=== PATIENT | male | born 1965 | race Caucasian/White ===

== ENCOUNTER 2022-02-04 00:25 | Emergency (ER) | payer BC ==
[~2022-02-04] VITALS: Ht 177.8 cm; Wt 79.8 kg
[2022-02-04 00:51] VITALS: BP_SYST 153
--- NOTE | 2022-02-04 00:51 | NUR ---
Patient triaged and placed in waiting room. VSS and patient appears in no acute distress at this time. Accompanied by , awaiting available bed, and MD notified of need for MSE.
--- NOTE | 2022-02-04 01:11 | NUR ---
56 YR OLD AOX4 AMBULATORY MALE WITH COMPLAINT OF LOWER RIGHT SIDED ABDOMINAL PAIN 8/10 FOR 3 HOURS. PT REPORTS NAUSEA BUT NO VOMITING, PT STATED HE TOOK ADVIL WITH NO PAIN RELIEF. PT ACCOMPANIED BY . PENDING MD DAVID
[2022-02-04 01:39] LABS: BILIRUBIN,URINE NEGATIVE (NEGATIVE); BLOOD, URINE 2+ (NEGATIVE); CLARITY/URINE CLEAR (CLEAR); COLOR,URINE YELLOW (YELLOW); GLUCOSE,URINE NEGATIVE (NEGATIVE); KETONES,URINE NEGATIVE (NEGATIVE); LEUKOCYTE ESTERASE ,URINE NEGATIVE (NEGATIVE); NITRITE, URINE NEGATIVE (NEGATIVE); PH,URINE 5.5 (5.0-8.0); PROTEIN URINE NEGATIVE (NEGATIVE); UROBILINOGEN,URINE 0.2 (0.2-1.0)
[2022-02-04 01:42] LABS: BASOPHILS # (AUTO) 0.1 K/uL (0.0-0.2); BASOPHILS % (AUTO) 0.6 % (0.0-2.0); EOSINOPHILS # (AUTO) 0.1 K/uL (0.0-0.4); EOSINOPHILS % (AUTO) 1.4 % (0.0-4.0); HEMATOCRIT 42.4 % (36-54); HEMOGLOBIN 14.4 g/dL (14.0-18.0); LYMPHOCYTES % (AUTO) 10.4 % (20.5-51.5); MEAN CORPUSCULAR HEMOGLOBIN 28 pg (27-31); MEAN CORPUSCULAR HGB CONC 34 % (32-36); MEAN CORPUSCULAR VOLUME 84 fL (79.0-98.0); MONOCYTES # (AUTO) 0.4 K/uL (0.0-1.0); NEUTROPHILS # (AUTO) 8.1 K/uL (1.8-7.7); NEUTROPHILS % (AUTO) 83.6 % (40.0-70.0); PLATELET COUNT (AUTO) 166 K/uL (130-430); RED BLOOD CELL COUNT(AUTO) 5.07 MIL/uL (4.2-6.2); RED CELL DISTRIBUTION WIDTH 13.1 % (9.0-15.0); WHITE BLOOD COUNT (AUTO) 9.7 K/uL (4.8-10.8)
[2022-02-04 02:06] LABS: CALCIUM 8.9 mg/dL (8.4-11.0); CREATININE 1.33 mg/dL (0.55-1.30); POTASSIUM 4.2 mmol/L (3.5-5.1)
[2022-02-04 02:12] LABS: ALBUMIN 3.9 g/dL (3.4-4.8); TOTAL BILIRUBIN 0.9 mg/dL (0.0-1.0)
[2022-02-04] MEDS ORDERED: ONDANSETRON 4 MG ODT TAB PO ONE (02:15)
[2022-02-04] MEDS ORDERED: ONDANSETRON 4 MG ODT TAB ONE (02:18)
[2022-02-04 02:25] LABS: BACTERIA,URINE RARE /HPF (None Seen); RBC,URINE 0-3 /HPF (0-3); WBC,URINE 0-3 /HPF (0-3)
[2022-02-04] MEDS ORDERED: MORPHINE 4 MG INJ. 4 MG/ML VIAL IVP ONE (02:30)
[2022-02-04] MEDS ORDERED: NACL 0.9% 1,000 ML IV ONE (02:30)
[2022-02-04] MEDS ORDERED: KETOROLAC TROMETHAMINE 30 MG VIAL IVP ONE (02:30)
[2022-02-04] MEDS ORDERED: PERC10 PO (04:38)
[2022-02-04] MEDS ORDERED: IBUP-1969 PO (04:38)
[2022-02-04] MEDS ORDERED: TAMS-11 PO (04:38)
[2022-02-04] MEDS ORDERED: HYDROcodone/ACETAMIN 7.5-325 MG TAB PO ONE (04:45)
[2022-02-04] MEDS ORDERED: ONDANSETRON HCL 4 MG/2 ML VIAL IVP ONE (05:00)
[2022-02-04] MEDS ORDERED: ONDANSETRON HCL 4 MG/2 ML VIAL ONE (05:01)
--- NOTE | 2022-02-04 05:42 | NUR ---
Patient given written and verbal discharge instructions and verbalizes understanding. ER MD discussed with patient the results and treatment provided. Patient in stable condition. ID arm band removed. IV catheter removed intact and dressing applied, no active bleeding. Rx of ibuprofen, oxycodone, and percocet given. Patient educated on pain management and to follow up with PMD. Opportunity for questions provided and answered. Pt accompanied by
== END 2022-02-04 05:42 | disposition home or self-care (01) ==
LOC: SED 00:25
DX: N20.0 Calculus of kidney (principal); R10.32 Left lower quadrant pain
CPT/HCPCS: 36415; 74176; 76376; 80053; 81000; 83690; 85025; 96361; 96374; 96375; 99284; J1885; J2270; J2405; J7030; Q0162

== ENCOUNTER 2022-09-13 12:17 | Emergency (ER) | payer BC ==
[~2022-09-13] VITALS: Ht 177.8 cm; Wt 72.6 kg
[~2022-09-13 12:17] MED LIST: IBUP-1969 PO; PERC10 PO; TAMS-11 PO
[2022-09-13 12:26] VITALS: BP_SYST 148
[2022-09-13 13:30] LABS: BASOPHILS # (AUTO) 0.1 K/uL (0.0-0.2); BASOPHILS % (AUTO) 1.1 % (0.0-2.0); EOSINOPHILS # (AUTO) 0.1 K/uL (0.0-0.4); EOSINOPHILS % (AUTO) 2.2 % (0.0-4.0); HEMATOCRIT 45.2 % (36-54); HEMOGLOBIN 15.1 g/dL (14.0-18.0); MEAN CORPUSCULAR HEMOGLOBIN 29 pg (27-31); MEAN CORPUSCULAR HGB CONC 34 % (32-36); MEAN CORPUSCULAR VOLUME 85 fL (79.0-98.0); MONOCYTES # (AUTO) 0.5 K/uL (0.0-1.0); MONOCYTES % (AUTO) 7.8 % (1.7-9.3); NEUTROPHILS # (AUTO) 4.4 K/uL (1.8-7.7); NEUTROPHILS % (AUTO) 72.9 % (40.0-70.0); PLATELET COUNT (AUTO) 154 K/uL (130-430); RED BLOOD CELL COUNT(AUTO) 5.29 MIL/uL (4.2-6.2); RED CELL DISTRIBUTION WIDTH 13.5 % (9.0-15.0)
--- NOTE | 2022-09-13 13:31 | NUR ---
PT PRESENTS TO ED WITH REFERRAL FROM URGENT CARE WITH HIGH BP AND ABNORMAL EKG. PT WAS GIVEN AT 1040 CLONODINE 0.1MG. PT STATES HE HAS A HEART MUMUR, WAITING FOR ECHOCARDIOGRAM FROM SPECIALIST. PT CLAIMS HE IS ANXIOUS, EYE PRESSURE, AND IS NOT SLEEPING AT ALL. PT CLAIMS HE HAS SENSITIVITY TO LIGHT.PT IS WAITING FOR NEW EYE PERSCRIPTION. PT HAS NOT BEING ABLE TO SLEEP HAS BEEN ONGOING FOR A WEEK GETTING LESS THAN 5 HOURS OF SLEEP A DAY, WAKING UP HOT. NAD, RESPIRATIONS EVEN AND UNLABORED. WILL CONT TO MONITOR.
--- NOTE | 2022-09-13 13:32 | NUR ---
ED IS IN ROOM ASSESSING PT.
[2022-09-13 13:33] LABS: CALCIUM 9.3 mg/dL (8.4-11.0); CREATININE 0.87 mg/dL (0.55-1.30)
[2022-09-13 13:38] LABS: ALBUMIN 4.3 g/dL (3.4-4.8)
[2022-09-13] MEDS ORDERED: LORazepam 1 MG TABLET PO ONE (14:00)
[2022-09-13] MEDS ORDERED: NAPR-1172 PO (15:08)
--- NOTE | 2022-09-13 15:34 | NUR ---
Patient given written and verbal discharge instructions and verbalizes understanding. ER MD discussed with patient the results and treatment provided. Patient in stable condition. ID arm band removed. Rx of NAPROXYN given. Patient educated on pain management and to follow up with PMD. Pain Scale . Opportunity for questions provided and answered. Medication side effect fact sheet provided.
[2022-09-13 15:36] VITALS: BP_SYST 135
== END 2022-09-13 15:36 | disposition home or self-care (01) ==
LOC: SED 12:17
DX: I30.9 Acute pericarditis, unspecified (principal); G47.00 Insomnia, unspecified; F43.20 Adjustment disorder, unspecified; I10 Essential (primary) hypertension; E78.00 Pure hypercholesterolemia, unspecified; Z79.899 Other long term (current) drug therapy
CPT/HCPCS: 36415; 80053; 84443; 85025; 93005; 99284